=== PATIENT | female | born 1950 | race Caucasian/White ===

== ENCOUNTER → 2016-04-16 | Outpatient (CLI) | payer OTHER ==
[~2016-04-16] MED LIST: ALEV220C2 PO; ALLE180T33 PO; ASPI1TAB24 PO; ATOR1TAB21 PO; INFL10VL IV; LOSA100T36 PO; METF1000 PO; METO50TA2 PO; PREV30CA11 PO; SERT-141 PO
--- NOTE | 2016-04-18 11:04 | REP ---
Acute abdominal series three views including PA chest and supine upright abdomen: Comparisons 06/18/2012. PA chest: Lung leavitt are clear. Cardiac size is upper normal. The terrell, mediastinum, and bony thorax unremarkable. There is no free subdiaphragmatic air. Impression: No interval change. No acute cardiopulmonary findings. Abdomen, supine and upright views: The bowel gas pattern is normal. There are no calcifications except for phleboliths in the pelvis, unchanged. The skeletal structures and soft tissues otherwise are unremarkable. Impression: Normal bowel gas pattern. Signed by Anton Hassan MD 04/16/2016 04:37 P
== END ==
LOC: M LRY 15:10
PROVIDERS: ATTEND Nurse Practitioner Family
DX: R10.9 Unspecified abdominal pain (principal)

== ENCOUNTER → 2016-04-16 | Outpatient (REF) | payer OTHER | END | disposition home or self-care (01) | LOC: M SFHCLERA 15:03 | PROVIDERS: ATTEND Nurse Practitioner Family | DX: R10.9 Unspecified abdominal pain (principal) ==

== ENCOUNTER 2016-04-18 10:43 | Emergency (ER) | payer OTHER ==
--- NOTE | 2016-04-18 12:17 | EDDOCDS ---
Nurse's Notes [facility] Name: Cait Anguiano Age: 65 yrs Sex: Female : 1950 Arrival Date: 04/18/2016 Time: 10:43 Bed TR7 Private MD: Estela Villalta M. Diagnosis: Lower abdominal pain, unspecified;Constipation Presentation: 04/18 10:46 Presenting complaint: Patient states: Pt presents with abdominal pain x 4 days was seen dls at urgent care dx constipation was given miralax and stool softner no BM yet. Pt continues to have abdominal pain pt is scheduled for colonscopy prep tomorrow colonscopy scheduled for Monday. Adult Sepsis Screening: The patient does not have new or worsening altered mentation. Patient's respiratory rate is less than 22. Systolic blood pressure is greater than 100. Patient has a qSOFA score of 0- Negative Sepsis Screen. Suicide/Homicide risk assessment- the patient denies having any suicidal and/or homicidal ideations and does not present with any other emotional, behavioral or mental health complaints. Status: Patient is not a account services analyst or dependent. Transition of care: patient was not received from another setting of care. 10:46 Acuity: HUYEN Level 4 dls 10:46 Method Of Arrival: Walkin/Carried/Asstd dls Triage Assessment: 10:54 General: Appears uncomfortable, well developed, well nourished, well groomed, Behavior dls is cooperative. Pain: Pain currently is 5 out of 10 on a pain scale. HIV screening NA for this visit Offered previously. GI: Reports constipation. Historical: - Allergies: Augmentin; - Home Meds: 1. Miralax 17 gram Oral pwpk 1 packet once daily 2. Colace 100 mg oral cap 1 cap 2 times per day 3. metformin 1,000 mg Oral tr24 1 tab twice a day 4. metoprolol tartrate 50 mg Oral tab 1 tab 2 times per day 5. Sertraline 50 mg daily 6. losartan 100 mg oral tab 1 tab once daily 7. atorvastatin 20 mg oral tab 1 tab once daily 8. Prevacid 30 mg Oral cpDR 1 cap once daily 9. aspirin 81 mg Oral tab 1 tab once daily 10. Aleve 220 mg Oral tab 1 tab 11. Flexeril 10 mg Oral tab as needed 12. remicade every 6-8 weeks - PMHx: Diabetes - NIDDM: controlled; psoratic arthritis; Hypertension; Hypercholesterolemia; - PSHx: Tubal ligation; - Social history: Smoking status: Patient/guardian denies using No barriers to communication noted, The patient speaks fluent Gabonese. - : The pt / caregiver states he / she is not on anticoagulants. Home medication list is obtained from the patient. - Exposure Risk Screening:: None identified. Vital Signs: 10:44 BP 145 / 81; Pulse 71; Resp 18 S; Temp 98.1(T); Pulse Ox 99% on R/A; Weight 97.52 kg dd6 (R); Height 5 ft. 6 in. (167.64 cm) (R); 10:44 Body Mass Index 34.70 (97.52 kg, 167.64 cm) dd6 Vitals: 10:44 Log In Time: April 18, 2016 at 10:42. dd6 ED Course: 10:44 Patient visited by Elvis Camejo PCA. dd6 10:44 Estela Villalta is Private Physician. dd6 10:44 Patient moved to Waiting dd6 10:45 Patient moved to Pre RCE dd6 10:49 Triage Initiated dls 11:27 Patient moved to Triage 3 ar3 11:53 [facility] mo1 11:53 Segun Viera MD is Attending Physician. mo1 12:07 Patient visited by Marcus Parry PA. mo1 12:09 Estela Villalta is Referral Physician. mo1 12:09 Antonio Matamoros is Referral Physician. mo1 12:13 Patient moved to TR7 ar3 12:16 [facility] Payment Agreement was scanned into [employer] and attached to record. jp5 Order Results: There are currently no results for this order. Outcome: 12:09 Discharge ordered by Provider. mo1 12:16 Patient left the ED. kcs Signatures: Carolina Donato RN RN Lety Coronado RN RN dls Desormeau, Daniell, ALVINA BOARDMARKER dd6 Janneth Goodman PCA BOARDMARKER ar3 Marcus Parry PA PA mo1 Irene Galvin jp5 MTDD
--- NOTE | 2016-04-18 12:17 | EDDOCDS ---
Physician Documentation [facility] Name: Cait Anguiano Age: 65 yrs Sex: Female : 1950 Arrival Date: 04/18/2016 Time: 10:43 Bed TR7 Private MD: Estela Villalta M. Disposition: 04/18/16 12:09 Discharged to Home/Self Care. Impression: Lower abdominal pain, unspecified, Constipation. - Condition is Stable. - Discharge Instructions: Abdominal Pain, Adult, Constipation, Adult. - Medication Reconciliation, Local Pharmacy Hours form. - Follow up: Estela Villalta; When: Call to arrange an appointment; Reason: Recheck today's complaints, Continuance of care. Follow up: Antonio Matamoros; When: Call to arrange an appointment; Reason: Recheck today's complaints, Continuance of care. - Problem is new. - Symptoms are unchanged. Historical: - Allergies: Augmentin; - Home Meds: 1. Miralax 17 gram Oral pwpk 1 packet once daily 2. Colace 100 mg oral cap 1 cap 2 times per day 3. metformin 1,000 mg Oral tr24 1 tab twice a day 4. metoprolol tartrate 50 mg Oral tab 1 tab 2 times per day 5. Sertraline 50 mg daily 6. losartan 100 mg oral tab 1 tab once daily 7. atorvastatin 20 mg oral tab 1 tab once daily 8. Prevacid 30 mg Oral cpDR 1 cap once daily 9. aspirin 81 mg Oral tab 1 tab once daily 10. Aleve 220 mg Oral tab 1 tab 11. Flexeril 10 mg Oral tab as needed 12. remicade every 6-8 weeks - PMHx: Diabetes - NIDDM: controlled; psoratic arthritis; Hypertension; Hypercholesterolemia; - PSHx: Tubal ligation; - Social history: Smoking status: Patient/guardian denies using No barriers to communication noted, The patient speaks fluent Welsh. - : The pt / caregiver states he / she is not on anticoagulants. Home medication list is obtained from the patient. - Exposure Risk Screening:: None identified. Vital Signs: 04/18 10:44 BP 145 / 81; Pulse 71; Resp 18 S; Temp 98.1(T); Pulse Ox 99% on R/A; Weight 97.52 kg / dd6 214.99 lbs (R); Height 5 ft. 6 in. (167.64 cm) (R); 10:44 Body Mass Index 34.70 (97.52 kg, 167.64 cm) dd6 MDM: 12:16 [facility] Payment Agreement was scanned into [employer] and attached to record. jp5 12:16 Financial registration complete. jp5 Signatures: Carolina Donato RN RN Lety Coronado RN RN dls O'Hagan, Michael, PA PA mo1 Irene Galvin jp5 The chart was reviewed and I authenticate all verbal orders and agree with the evaluation and treatment provided.Attachments: 12:16 [facility] Payment Agreement jp5 MTDD
--- NOTE | 2016-04-20 13:17 | EDDOCDS ---
Physician Documentation [facility] Name: Cait Anguiano Age: 65 yrs Sex: Female : 1950 Arrival Date: 04/18/2016 Time: 10:43 Bed TR7 Private MD: Estela Villalta M. Disposition: 04/18/16 12:09 Discharged to Home/Self Care. Impression: Lower abdominal pain, unspecified, Constipation. - Condition is Stable. - Discharge Instructions: Abdominal Pain, Adult, Constipation, Adult. - Medication Reconciliation, Local Pharmacy Hours form. - Follow up: Estela Villalta; When: Call to arrange an appointment; Reason: Recheck today's complaints, Continuance of care. Follow up: Antonio Matamoros; When: Call to arrange an appointment; Reason: Recheck today's complaints, Continuance of care. - Problem is new. - Symptoms are unchanged. Historical: - Allergies: Augmentin; - Home Meds: 1. Miralax 17 gram Oral pwpk 1 packet once daily 2. Colace 100 mg oral cap 1 cap 2 times per day 3. metformin 1,000 mg Oral tr24 1 tab twice a day 4. metoprolol tartrate 50 mg Oral tab 1 tab 2 times per day 5. Sertraline 50 mg daily 6. losartan 100 mg oral tab 1 tab once daily 7. atorvastatin 20 mg oral tab 1 tab once daily 8. Prevacid 30 mg Oral cpDR 1 cap once daily 9. aspirin 81 mg Oral tab 1 tab once daily 10. Aleve 220 mg Oral tab 1 tab 11. Flexeril 10 mg Oral tab as needed 12. remicade every 6-8 weeks - PMHx: Diabetes - NIDDM: controlled; psoratic arthritis; Hypertension; Hypercholesterolemia; - PSHx: Tubal ligation; - Social history: Smoking status: Patient/guardian denies using No barriers to communication noted, The patient speaks fluent Ukrainian. - Family history: Not pertinent. - : The pt / caregiver states he / she is not on anticoagulants. Home medication list is obtained from the patient. - Exposure Risk Screening:: None identified. Vital Signs: 04/18 10:44 BP 145 / 81; Pulse 71; Resp 18 S; Temp 98.1(T); Pulse Ox 99% on R/A; Weight 97.52 kg / dd6 214.99 lbs (R); Height 5 ft. 6 in. (167.64 cm) (R); 10:44 Body Mass Index 34.70 (97.52 kg, 167.64 cm) dd6 MDM: 12:16 [facility] Payment Agreement was scanned into [employer] and attached to record. jp5 12:16 Financial registration complete. jp5 14:40 T-Sheet-- Draft Copy was scanned into [employer] and attached to record. gb Signatures: Carolina Donato RN RN Lety Coronado RN RN dls Ana Cortes, Reg Reg gb Marcus Parry, ANGÉLICA PA mo1 Irene Galvin jp5 The chart was reviewed and I authenticate all verbal orders and agree with the evaluation and treatment provided.Attachments: 12:16 [facility] Payment Agreement jp5 14:40 T-Sheet-- Draft Copy gb Chart Complete MTDD
--- NOTE | 2016-04-20 13:17 | EDDOCDS ---
Physician Documentation [facility] Name: Cait Anguiano Age: 65 yrs Sex: Female : 1950 Arrival Date: 04/18/2016 Time: 10:43 Bed TR7 Private MD: Estela Villalta M. Disposition: 04/18/16 12:09 Discharged to Home/Self Care. Impression: Lower abdominal pain, unspecified, Constipation. - Condition is Stable. - Discharge Instructions: Abdominal Pain, Adult, Constipation, Adult. - Medication Reconciliation, Local Pharmacy Hours form. - Follow up: Estela Villalta; When: Call to arrange an appointment; Reason: Recheck today's complaints, Continuance of care. Follow up: Antonio Matamoros; When: Call to arrange an appointment; Reason: Recheck today's complaints, Continuance of care. - Problem is new. - Symptoms are unchanged. Historical: - Allergies: Augmentin; - Home Meds: 1. Miralax 17 gram Oral pwpk 1 packet once daily 2. Colace 100 mg oral cap 1 cap 2 times per day 3. metformin 1,000 mg Oral tr24 1 tab twice a day 4. metoprolol tartrate 50 mg Oral tab 1 tab 2 times per day 5. Sertraline 50 mg daily 6. losartan 100 mg oral tab 1 tab once daily 7. atorvastatin 20 mg oral tab 1 tab once daily 8. Prevacid 30 mg Oral cpDR 1 cap once daily 9. aspirin 81 mg Oral tab 1 tab once daily 10. Aleve 220 mg Oral tab 1 tab 11. Flexeril 10 mg Oral tab as needed 12. remicade every 6-8 weeks - PMHx: Diabetes - NIDDM: controlled; psoratic arthritis; Hypertension; Hypercholesterolemia; - PSHx: Tubal ligation; - Social history: Smoking status: Patient/guardian denies using No barriers to communication noted, The patient speaks fluent Setswana. - Family history: Not pertinent. - : The pt / caregiver states he / she is not on anticoagulants. Home medication list is obtained from the patient. - Exposure Risk Screening:: None identified. Vital Signs: 04/18 10:44 BP 145 / 81; Pulse 71; Resp 18 S; Temp 98.1(T); Pulse Ox 99% on R/A; Weight 97.52 kg / dd6 214.99 lbs (R); Height 5 ft. 6 in. (167.64 cm) (R); 10:44 Body Mass Index 34.70 (97.52 kg, 167.64 cm) dd6 MDM: 12:16 [facility] Payment Agreement was scanned into [employer] and attached to record. jp5 12:16 Financial registration complete. jp5 14:40 T-Sheet-- Draft Copy was scanned into [employer] and attached to record. gb Signatures: Carolina Donato RN RN Lety Coronado RN RN dls Ana Cortes, Reg Reg gb Marcus Parry, ANGÉLICA PA mo1 Irene Galvin jp5 The chart was reviewed and I authenticate all verbal orders and agree with the evaluation and treatment provided.Attachments: 12:16 [facility] Payment Agreement jp5 14:40 T-Sheet-- Draft Copy gb Chart Complete MTDD
--- NOTE | 2016-04-20 13:17 | EDDOCDS ---
Nurse's Notes [facility] Name: Cait Anguiano Age: 65 yrs Sex: Female : 1950 Arrival Date: 04/18/2016 Time: 10:43 Bed TR7 Private MD: Estela Villalta M. Diagnosis: Lower abdominal pain, unspecified;Constipation Presentation: 04/18 10:46 Presenting complaint: Patient states: Pt presents with abdominal pain x 4 days was seen dls at urgent care dx constipation was given miralax and stool softner no BM yet. Pt continues to have abdominal pain pt is scheduled for colonscopy prep tomorrow colonscopy scheduled for Monday. Adult Sepsis Screening: The patient does not have new or worsening altered mentation. Patient's respiratory rate is less than 22. Systolic blood pressure is greater than 100. Patient has a qSOFA score of 0- Negative Sepsis Screen. Suicide/Homicide risk assessment- the patient denies having any suicidal and/or homicidal ideations and does not present with any other emotional, behavioral or mental health complaints. Status: Patient is not a sales agent protective service or dependent. Transition of care: patient was not received from another setting of care. 10:46 Acuity: HUYEN Level 4 dls 10:46 Method Of Arrival: Walkin/Carried/Asstd dls Triage Assessment: 10:54 General: Appears uncomfortable, well developed, well nourished, well groomed, Behavior dls is cooperative. Pain: Pain currently is 5 out of 10 on a pain scale. HIV screening NA for this visit Offered previously. GI: Reports constipation. Historical: - Allergies: Augmentin; - Home Meds: 1. Miralax 17 gram Oral pwpk 1 packet once daily 2. Colace 100 mg oral cap 1 cap 2 times per day 3. metformin 1,000 mg Oral tr24 1 tab twice a day 4. metoprolol tartrate 50 mg Oral tab 1 tab 2 times per day 5. Sertraline 50 mg daily 6. losartan 100 mg oral tab 1 tab once daily 7. atorvastatin 20 mg oral tab 1 tab once daily 8. Prevacid 30 mg Oral cpDR 1 cap once daily 9. aspirin 81 mg Oral tab 1 tab once daily 10. Aleve 220 mg Oral tab 1 tab 11. Flexeril 10 mg Oral tab as needed 12. remicade every 6-8 weeks - PMHx: Diabetes - NIDDM: controlled; psoratic arthritis; Hypertension; Hypercholesterolemia; - PSHx: Tubal ligation; - Social history: Smoking status: Patient/guardian denies using No barriers to communication noted, The patient speaks fluent Panamanian. - Family history: Not pertinent. - : The pt / caregiver states he / she is not on anticoagulants. Home medication list is obtained from the patient. - Exposure Risk Screening:: None identified. Screenin:15 Screening information is obtained from prior medical records. Fall risk: No risks kcs identified. Assistance ADL's: requires no assistance with activities of daily living. Abuse/DV Screen: The patient / caregiver reports he/she is: not in a situation that causes fear, pain or injury. Nutritional screening: No deficits noted. Advance Directives: Currently, there is no health care proxy. There is no living will. home support is adequate. Assessment: 12:15 General: Appears comfortable, well developed, well nourished, well groomed, Behavior is kcs cooperative, pleasant. Pain: Complains of pain in abdomen. Awake, alert, oriented. Skin warm and dry. Moves all extremities. Respirations unlabored. No apparent distress. The patient / caregiver is instructed regarding the plan of care and ED course. Physical assessment to be completed by PA/JOSS. Vital Signs: 10:44 BP 145 / 81; Pulse 71; Resp 18 S; Temp 98.1(T); Pulse Ox 99% on R/A; Weight 97.52 kg dd6 (R); Height 5 ft. 6 in. (167.64 cm) (R); 10:44 Body Mass Index 34.70 (97.52 kg, 167.64 cm) dd6 Vitals: 10:44 Log In Time: April 18, 2016 at 10:42. dd6 ED Course: 10:44 Patient visited by Elvis Camejo PCA. dd6 10:44 Estela Villalta is Private Physician. dd6 10:44 Patient moved to Waiting dd6 10:45 Patient moved to Pre RCE dd6 10:49 Triage Initiated dls 11:27 Patient moved to Triage 3 ar3 11:53 Marcus Parry PA is PHCP. mo1 11:53 Segun Viera MD is Attending Physician. mo1 12:07 Patient visited by Marcus Parry PA. mo1 12:09 Estela Villalta is Referral Physician. mo1 12:09 Antonio Matamoros is Referral Physician. mo1 12:13 Patient moved to TR7 ar3 12:15 Accompanied by Significant Other. kcs 12:15 No IV's were initiated during this patient's visit. No procedures done that require kcs assistance. 12:16 [facility] Payment Agreement was scanned into [employer] and attached to record. jp5 13:36 Patient name changed from Cait\S\\S\Anguiano\S\ to Cait\S\Geo\S\Anguiano. EDMS 14:40 T-Sheet-- Draft Copy was scanned into [employer] and attached to record. gb Order Results: There are currently no results for this order. Outcome: 12:09 Discharge ordered by Provider. mo1 12:15 The following High Risk Discharge criteria are identified: None. Discharged to home kcs ambulatory. Condition: stable. Discharge instructions given to patient, Instructed on discharge instructions, follow up and referral plans. Demonstrated understanding of instructions, Pt was receptive of discharge instructions/ teaching. No special radiology studies were completed. 12:15 Discharge Assessment: Patient awake, alert and oriented x 3. No cognitive and/or kcs functional deficits noted. Patient verbalized understanding of disposition instructions. Patient awake and alert. patient administered narcotics - no. The following High Risk Discharge criteria are identified: None. Property sent home with patient. 12:16 Patient left the ED. kcs Signatures: Dispatcher [facility] EDRI Carolina Donato RN RN kcs Scott, Debra, RN RN dls Barnhardt, Gloria, Robby Reg gb Elvis Camejo, INTERLIBRARY LOAN SPECIALIST INTERLIBRARY LOAN SPECIALIST dd6 Janneth Goodman, INTERLIBRARY LOAN SPECIALIST INTERLIBRARY LOAN SPECIALIST ar3 Marcus Parry PA PA mo1 Irene Galvin jp5 Chart Complete MTDD
== END 2016-04-18 12:16 | disposition home or self-care (01) ==
LOC: M ED 10:43
DX: K59.00 Constipation, unspecified (principal); E11.9 Type 2 diabetes mellitus without complications; I10 Essential (primary) hypertension; E78.00 Pure hypercholesterolemia, unspecified; L40.50 Arthropathic psoriasis, unspecified; Z79.899 Other long term (current) drug therapy; Z88.1 Allergy status to other antibiotic agents

== ENCOUNTER → 2016-04-20 | Outpatient (CLI) | payer OTHER, BC ==
[~2016-04-20] VITALS: Ht 167.6 cm; Wt 97.5 kg
[~2016-04-20] MED LIST changes: +NS 1,000 ML IV SCH
--- NOTE | 2016-04-20 08:42 | ROOR ---
Patient Name: Cait Anguiano Procedure Date: 04/20/2016 8:14 AM Date of : 1950 Age: 65 Room: [facility] Gender: Female Note Status: Finalized Procedure: Colonoscopy to Cecum Indications: Screening for colorectal malignant neoplasm Providers: Antonio Matamoros MD Referring MD: Estela LUCIANO MD Requesting Provider: Medicines: Monitored Anesthesia Care Complications: No immediate complications. Procedure: Pre-Anesthesia Assessment: - The heart rate, respiratory rate, oxygen saturations, blood pressure, adequacy of pulmonary ventilation, and response to care were monitored throughout the procedure. The Colonoscope was introduced through the anus and advanced to the cecum, identified by appendiceal orifice and ileocecal valve. The colonoscopy was performed without difficulty. The patient tolerated the procedure well. The quality of the bowel preparation was excellent. Findings: The perianal and digital rectal examinations were normal. Non-bleeding internal hemorrhoids were found during retroflexion. The hemorrhoids were small and Grade I (internal hemorrhoids that do not prolapse). Scattered small-mouthed diverticula were found in the recto-sigmoid colon, sigmoid colon and descending colon. The exam was otherwise without abnormality on direct and retroflexion views. Impression: - Non-bleeding internal hemorrhoids. - Diverticulosis in the recto-sigmoid colon, in the sigmoid colon and in the descending colon. - The examination was otherwise normal on direct and retroflexion views. - No specimens collected. - The exam was otherwise normal to the cecum. Recommendation: - Patient has a contact number available for emergencies. The signs and symptoms of potential delayed complications were discussed with the patient. Return to normal activities tomorrow. Written discharge instructions were provided to the patient. - High fiber diet. - Discharge patient to home. - Continue present medications. - Repeat colonoscopy in 10 years for screening purposes. - Return to referring physician. - The findings and recommendations were discussed with the patient's family. Antonio Matamoros MD Antonio Matamoros MD 04/20/2016 8:42:46 AM This report has been signed electronically. Number of Addenda: 0 Note Initiated On: 04/20/2016 8:14 AM Estimated Blood Loss: Estimated blood loss: none.
[2016-04-20 08:55] VITALS: BP 161/75
== END ==
LOC: M OPP 07:28
PROVIDERS: ATTEND Internal Medicine Gastroenterology
DX: Z12.11 Encounter for screening for malignant neoplasm of colon (principal); K64.0 First degree hemorrhoids; K57.30 Diverticulosis of large intestine without perforation or abscess without bleeding; R19.4 Change in bowel habit; K21.9 Gastro-esophageal reflux disease without esophagitis; I10 Essential (primary) hypertension; E78.00 Pure hypercholesterolemia, unspecified; E11.9 Type 2 diabetes mellitus without complications; Z79.899 Other long term (current) drug therapy

== ENCOUNTER → 2016-09-23 | Outpatient (REF) | payer OTHER ==
[~2016-09-23] MED LIST changes: +ASPI-161 PO; -ASPI1TAB24 PO; -METF1000 PO; +METF10004 PO; -METO50TA2 PO; +METO50TA7 PO; -NS 1,000 ML IV SCH; +PREV1CAP PO; -PREV30CA11 PO; -SERT-141 PO; +SERT50TA PO
== END ==
LOC: M SFHCLERA 08:09
PROVIDERS: ATTEND Family Medicine
DX: E11.9 Type 2 diabetes mellitus without complications (principal)

== ENCOUNTER → 2016-09-23 | Outpatient (CLI) | payer OTHER ==
[2016-09-23 12:02] LABS: BASO % 0.7 % (0.0-1.0); EOS # 0.3 K/mm3 (0.0-0.50); EOS % 4.2 % (0.0-3.0); LARGE UNSTAINED CELL # 0.1 K/mm3 (0.0-0.4); LARGE UNSTAINED CELL % 1.1 % (0.0-4.0); LYMPH % 42.7 % (24.0-44.0); MEAN CORPUSCULAR HEMOGLOBIN 29.9 pg (27.0-33.0); MEAN CORPUSCULAR HGB CONC 33.2 g/dl (32.0-36.5); MONO # 0.3 K/mm3 (0.0-0.8); MONO % 4.4 % (0.0-5.0); NEUTROPHILS # 3.2 K/mm3 (1.8-7.7); NEUTROPHILS % 46.9 % (36.0-66.0); PLATELET COUNT, AUTOMATED 212 k/mm3 (150-450); WHITE BLOOD COUNT 6.8 K/mm3 (4.0-10.0)
[2016-09-23 12:08] LABS: ALBUMIN 3.6 GM/DL (3.2-5.2); ALBUMIN/GLOBULIN RATIO 1.06 (1.00-1.93); ALKALINE PHOSPHATASE 101 U/L (45-117); ALT/SGPT 27 U/L (12-78); ANION GAP 8 MEQ/L (8-16); AST/SGOT 20 U/L (15-37); BILIRUBIN,TOTAL 0.4 MG/DL (0.2-1.0); BLOOD UREA NITROGEN 18 MG/DL (7-18); CALCIUM LEVEL 8.7 MG/DL (8.8-10.2); CARBON DIOXIDE LEVEL 27 MEQ/L (21-32); CHLORIDE LEVEL 107 MEQ/L (98-107); GLOMERULAR FILTRATION RATE > 60.0 (>45); GLUCOSE, FASTING 148 MG/DL (80-110); POTASSIUM SERUM 4.4 MEQ/L (3.5-5.1); SODIUM LEVEL 142 MEQ/L (136-145)
== END ==
LOC: M LRY 08:11
PROVIDERS: ATTEND Internal Medicine Rheumatology
DX: Z51.81 Encounter for therapeutic drug level monitoring (principal); Z79.899 Other long term (current) drug therapy; L40.59 Other psoriatic arthropathy

== ENCOUNTER → 2017-03-27 | Outpatient (REF) | payer OTHER ==
[2017-03-27 12:12] LABS: ANION GAP 7 MEQ/L (8-16); BLOOD UREA NITROGEN 25 MG/DL (7-18); CALCIUM LEVEL 9.5 MG/DL (8.8-10.2); CARBON DIOXIDE LEVEL 28 MEQ/L (21-32); CHLORIDE LEVEL 105 MEQ/L (98-107); CREATININE FOR GFR 0.83 MG/DL (0.55-1.02); GLOMERULAR FILTRATION RATE > 60.0 (>45); GLUCOSE, FASTING 123 MG/DL (80-110); POTASSIUM SERUM 4.9 MEQ/L (3.5-5.1); SODIUM LEVEL 140 MEQ/L (136-145)
[2017-03-27 13:05] LABS: MALB URINE SIEMENS 7.5 MG/L
[2017-03-27 14:48] LABS: ESTIMATED AVERAGE GLUCOSE 137 MG/DL (60-110); HEMOGLOBIN A1c 6.4 %
== END ==
LOC: M SFHCLERA 08:59
DX: E11.9 Type 2 diabetes mellitus without complications (principal); I10 Essential (primary) hypertension

== ENCOUNTER → 2017-07-31 | Outpatient (REF) | payer OTHER | LOC: M SFHCLERA 11:32 | DX: J02.9 Acute pharyngitis, unspecified (principal) ==

== ENCOUNTER → 2018-03-30 | Outpatient (REF) | payer MEDICARE, OTHER ==
[~2018-03-30] MED LIST changes: -LOSA100T36 PO; +LOSA100T50 PO
[2018-03-30 11:21] LABS: CHOLESTEROL RISK RATIO 3.018 (<5)
[2018-03-30 11:55] LABS: HEMOGLOBIN A1c 6.8 %
== END ==
LOC: M SFHCLERA 09:32
PROVIDERS: ATTEND Family Medicine
DX: E11.9 Type 2 diabetes mellitus without complications (principal)

== ENCOUNTER → 2019-10-02 | Outpatient (CLI) | payer MEDICARE, OTHER ==
[~2019-10-02] MED LIST changes: +SERT-141 PO; -SERT50TA PO
--- NOTE | 2019-10-02 17:23 | REP ---
REASON: Atraumatic left hip pain. There is mild asymmetric hip joint space narrowing without buttressing, fracture, or dislocation. Mild degenerative change seen involving the sacroiliac joints. IMPRESSION: Chronic changes. Electronically Signed by Tristan Bauer DO 10/02/2019 06:46 P
--- NOTE | 2019-10-02 17:42 | REP ---
REASON: Atraumatic pain. PRIORS: None. Mild asymmetric hip joint space narrowing is present without buttressing, fracture, or dislocation. IMPRESSION: Chronic changes. Electronically Signed by Tristan Bauer DO 10/02/2019 06:46 P
== END ==
LOC: M LRY 13:53
PROVIDERS: ATTEND Physician Assistant
DX: M16.12 Unilateral primary osteoarthritis, left hip (principal); R10.2 Pelvic and perineal pain; M25.552 Pain in left hip
CPT/HCPCS: 72190; 73502; G0463

== ENCOUNTER → 2019-12-05 | Outpatient (REF) | payer MEDICARE, OTHER ==
[2019-12-05 17:25] LABS: AMORPHOUS SEDIMENT SMALL (NEGATIVE); APPEARANCE, URINE TURBID (CLEAR); BACTERIA, URINE AUTO NEGATIVE (NEGATIVE); BILIRUBIN, URINE AUTO NEGATIVE (NEGATIVE); BLOOD, URINE BLOOD 1+ (NEGATIVE); COLOR, URINE YELLOW (YELLOW); GLUCOSE, URINE (UA) AUTO NEGATIVE (NEGATIVE); KETONE, URINE AUTO TRACE mg/dL (NEGATIVE); LEUKOCYTE ESTERASE, URINE AUTO 1+ (NEGATIVE); MUCUS, URINE SMALL (NEGATIVE); NITRITE, URINE AUTO NEGATIVE (NEGATIVE); PROTEIN, URINE AUTO NEGATIVE (NEGATIVE); RBC, URINE AUTO 1 /HPF (0-3); SPECIFIC GRAVITY URINE AUTO 1.027 (1.002-1.035); SQUAMOUS EPITHELIAL CELL UR AU 15 /HPF (0-6); WBC, URINE AUTO 2 /HPF (0-3)
[2019-12-05 17:46] LABS: MALB URINE SIEMENS 18.2 MG/L; MAU/CREAT RATIO 7.1 MCG/MG (0.0-30.0)
== END ==
LOC: M SFHCLERA 16:20
PROVIDERS: ATTEND Family Medicine
DX: R30.0 Dysuria (principal); Z23 Encounter for immunization
CPT/HCPCS: 81001; 82043; 87086; 90471; 90682; G0463

== ENCOUNTER → 2020-08-08 | Outpatient (CLI) | payer MEDICARE, BC ==
[~2020-08-08] MED LIST changes: +HUMI40KI2 SC; +JARD1TAB3 PO
== END ==
LOC: M LABSMTC 10:43
PROVIDERS: ATTEND Anesthesiology
DX: Z01.818 Encounter for other preprocedural examination (principal); Z11.52 Encounter for screening for COVID-19

== ENCOUNTER 2020-08-13 06:54 | Day surgery (SDC) | payer MEDICARE, BC ==
[~2020-08-13] VITALS: Ht 165.1 cm; Wt 86.2 kg
[~2020-08-13 06:54] MED LIST changes: +DUOVISC (0.50ML VISCOAT/0.55ML PROVISC) OPHTH KIT As Ordered ONE; +POVIDONE-IODINE 5% OPHTH PREP SOL 30ML As Ordered ONE
[2020-08-13] MEDS ORDERED: TROPICAMIDE 1% OPHTH SOLN 2ML OD ONE (07:00)
[2020-08-13] MEDS ORDERED: PHENYLEPHRINE 2.5% OPHTH SOL 2ML OD ONE (07:00)
[2020-08-13] MEDS ORDERED: PROPARACAINE 0.5% OPHTH SOL 15ML OD ONE (07:00)
[2020-08-13] MEDS ORDERED: OFLOXACIN 0.3 % (OCUFLOX) OPTH SOL 5ML OD ONE (07:00)
[2020-08-13] MEDS ORDERED: MIDAZOLAM INJ 2MG/2ML VIAL (J2250 PER 1MG) As Ordered ONE (07:12)
[2020-08-13] MEDS ORDERED: fentaNYL 100 MCG/2 ML INJECTION (J3010) As Ordered ONE (07:12)
[2020-08-13] MEDS ORDERED: BSS IRR 500ML/OMIDRIA 4ML IRR BAG (OR ONLY) As Ordered ONE (08:13)
[2020-08-13 09:20] VITALS: BP 111/53
[2020-08-13] MEDS ORDERED: ONDANSETRON 4MG/2ML VIAL IV PRN (09:45)
[2020-08-13] MEDS ORDERED: LR 1,000 ML IV SCH (09:45)
[2020-08-13] MEDS ORDERED: ACETAMINOPHEN TAB 650MG DOSE (2X325MG) PO PRN (09:45)
--- NOTE | 2020-08-14 08:40 | RO ---
OPERATIVE NOTE DATE OF OPERATION: 08/13/2020 PREOPERATIVE DIAGNOSIS: 1. Visually significant nuclear sclerotic cataract, right eye. POSTOPERATIVE DIAGNOSIS: 1. Visually significant nuclear sclerotic cataract, right eye. PROCEDURE: 1. Cataract extraction with use of phacoemulsification, and placement of intraocular lens, AU00T0, 17.5 D, right eye. SURGEON: Remigio Matamoros DO ANESTHESIA: Local (Omidria with MAC) COMPLICATIONS: None POSTOPERATIVE CONDITION: Stable INDICATIONS FOR SURGERY: 1. Blurred vision affecting patient's activities of daily living. DESCRIPTION OF PROCEDURE: The patient was seen in the preoperative area and properly identified. The correct operative eye was identified and marked. The patient received topical anesthetic, antibiotics, and topical dilating drops. The patient was then transferred to the operating room. The correct side was re-identified and a time-out was performed. The eye was prepped and draped in a sterile fashion. The eyelids were isolated with Tegaderm tape and the lids were held open with an adjustable speculum. A 1.0mm paracentesis incision was made. Omidria was then injected into the anterior chamber. Viscoelastic was then injected into the anterior chamber through the paracentesis. Using a 2.4mm sharp-tipped keratome, the anterior chamber was entered via a temporal clear cornea incision. A continuous curvilinear capsulorrhexis was created with Utrata forceps. Hydrodissection was performed with BSS on a blunt cannula until the nucleus was able to rotate freely. The crystalline lens was phacoemulsified and aspirated. Irrigation/aspiration was used to remove the cortical material Cohesive viscoelastic was placed into the capsular bag to deepen it. The implant was placed into the capsular bag and allowed to unfold. Placement was confirmed by visualizing the anterior capsulorrhexis. Irrigation/aspiration was used to remove the viscoelastic. The clear corneal incision was hydrated with BSS on a blunt cannula. The lens was well positioned. Intracameral antibiotic was injected into the anterior chamber. The incisions were then tested for leaks and found to be negative. The eye was then palpated for appropriate pressure and adjusted accordingly with BSS. The eyelid speculum was then carefully removed. A shield was placed over the eye. The patient tolerated the procedure well and was discharge to the recovery unit in a stable condition.
== END 2020-08-13 09:58 | disposition home or self-care (01) ==
LOC: M SDC 06:54
PROVIDERS: ATTEND Ophthalmology
DX: H25.11 Age-related nuclear cataract, right eye (principal); I10 Essential (primary) hypertension; E78.5 Hyperlipidemia, unspecified; E11.9 Type 2 diabetes mellitus without complications; Z79.84 Long term (current) use of oral hypoglycemic drugs; Z79.899 Other long term (current) drug therapy; K21.9 Gastro-esophageal reflux disease without esophagitis; Z88.0 Allergy status to penicillin; Z88.8 Allergy status to other drugs, medicaments and biological substances
CPT/HCPCS: 66984; J1097; J2250; J3010; V2632

== ENCOUNTER → 2020-08-15 | Outpatient (CLI) | payer MEDICARE, BC ==
[~2020-08-15] MED LIST changes: -DUOVISC (0.50ML VISCOAT/0.55ML PROVISC) OPHTH KIT As Ordered ONE; -POVIDONE-IODINE 5% OPHTH PREP SOL 30ML As Ordered ONE
== END ==
LOC: M LABSMTC 10:46
PROVIDERS: ATTEND Anesthesiology
DX: Z01.818 Encounter for other preprocedural examination (principal); Z11.52 Encounter for screening for COVID-19

== ENCOUNTER 2020-08-20 06:30 | Day surgery (SDC) | payer MEDICARE, BC ==
[~2020-08-20] VITALS: Ht 165.1 cm; Wt 86.1 kg
[2020-08-20] MEDS ORDERED: POVIDONE-IODINE 5% OPHTH PREP SOL 30ML As Ordered ONE (06:32)
[2020-08-20] MEDS ORDERED: CEFUROXIME 1MG/0.1ML INTRACAMERAL INJ As Ordered ONE (06:32)
[2020-08-20] MEDS ORDERED: DUOVISC (0.50ML VISCOAT/0.55ML PROVISC) OPHTH KIT As Ordered ONE (06:32)
[2020-08-20] MEDS ORDERED: PROPARACAINE 0.5% OPHTH SOL 15ML OS ONE (07:00)
[2020-08-20] MEDS ORDERED: PHENYLEPHRINE 2.5% OPHTH SOL 2ML OS ONE (07:00)
[2020-08-20] MEDS ORDERED: TROPICAMIDE 1% OPHTH SOLN 2ML OS ONE (07:00)
[2020-08-20] MEDS ORDERED: OFLOXACIN 0.3 % (OCUFLOX) OPTH SOL 5ML OS ONE (07:00)
[2020-08-20] MEDS ORDERED: MIDAZOLAM INJ 2MG/2ML VIAL (J2250 PER 1MG) As Ordered ONE (07:05)
[2020-08-20] MEDS ORDERED: fentaNYL 100 MCG/2 ML INJECTION (J3010) As Ordered ONE (07:06)
[2020-08-20] MEDS ORDERED: BSS IRR 500ML/OMIDRIA 4ML IRR BAG (OR ONLY) As Ordered ONE (07:12)
[2020-08-20 09:05] VITALS: BP 114/54
--- NOTE | 2020-08-21 08:41 | RO ---
OPERATIVE NOTE DATE OF OPERATION: 08/20/2020 PREOPERATIVE DIAGNOSIS: 1. Visually significant nuclear sclerotic cataract, left eye. POSTOPERATIVE DIAGNOSIS: 1. Visually significant nuclear sclerotic cataract, left eye. PROCEDURE: 1. Cataract extraction with use of phacoemulsification, and placement of intraocular lens, AU00T0, 17.5 D, left eye. SURGEON: Remigio Matamoros DO ANESTHESIA: Local (Omidria) with MAC COMPLICATIONS: None POSTOPERATIVE CONDITION: Stable INDICATIONS FOR SURGERY: 1. Blurred vision affecting patient's activities of daily living. DESCRIPTION OF PROCEDURE: The patient was seen in the preoperative area and properly identified. The correct operative eye was identified and marked. The patient received topical anesthetic, antibiotics, and topical dilating drops. The patient was then transferred to the operating room. The correct side was re-identified and a time-out was performed. The eye was prepped and draped in a sterile fashion. The eyelids were isolated with Tegaderm tape and the lids were held open with an adjustable speculum. A 1.0mm paracentesis incision was made. Omidria was then injected into the anterior chamber. Viscoelastic was then injected into the anterior chamber through the paracentesis. Using a 2.4mm sharp-tipped keratome, the anterior chamber was entered via a temporal clear cornea incision. A continuous curvilinear capsulorrhexis was created with Utrata forceps. Hydrodissection was performed with BSS on a blunt cannula until the nucleus was able to rotate freely. The crystalline lens was phacoemulsified and aspirated. Irrigation/aspiration was used to remove the cortical material Cohesive viscoelastic was placed into the capsular bag to deepen it. The implant was placed into the capsular bag and allowed to unfold. Placement was confirmed by visualizing the anterior capsulorrhexis. Irrigation/aspiration was used to remove the viscoelastic. The clear corneal incision was hydrated with BSS on a blunt cannula. The lens was well positioned. Intracameral antibiotic was injected into the anterior chamber. The incisions were then tested for leaks and found to be negative. The eye was then palpated for appropriate pressure and adjusted accordingly with BSS. The eyelid speculum was then carefully removed. A shield was placed over the eye. The patient tolerated the procedure well and was discharge to the recovery unit in a stable condition.
== END 2020-08-20 09:36 | disposition home or self-care (01) ==
LOC: M SDC 06:30
PROVIDERS: ATTEND Ophthalmology
DX: H25.12 Age-related nuclear cataract, left eye (principal); I10 Essential (primary) hypertension; E11.9 Type 2 diabetes mellitus without complications; E78.5 Hyperlipidemia, unspecified; K21.9 Gastro-esophageal reflux disease without esophagitis; Z79.82 Long term (current) use of aspirin; Z79.84 Long term (current) use of oral hypoglycemic drugs; Z79.899 Other long term (current) drug therapy; Z88.0 Allergy status to penicillin; Z88.1 Allergy status to other antibiotic agents
CPT/HCPCS: 66984; J1097; J2250; V2632

== ENCOUNTER → 2020-10-16 | Outpatient (CLI) | payer MEDICARE, BC ==
[2020-10-16 17:16] LABS: HEMOGLOBIN A1c 7.9 %
== END ==
LOC: M PLALAB 12:18
PROVIDERS: ATTEND Student in an Organized Health Care Education/Training Program
DX: E11.9 Type 2 diabetes mellitus without complications (principal)

== ENCOUNTER 2020-12-19 19:51 | Emergency (ER) | payer MEDICARE, BC ==
[~2020-12-19] VITALS: Ht 165.1 cm; Wt 82.9 kg
[2020-12-19 19:58] VITALS: BP 175/82
[2020-12-19] MEDS ORDERED: TOLT2TAB12 PO (20:10)
[2020-12-19] MEDS ORDERED: NS 1,000 ML IV ONE (21:00)
[2020-12-19] MEDS ORDERED: KETOROLAC 30 MG/ML 1ML VIAL IV ONE (21:00)
[2020-12-19] MEDS ORDERED: ISOVUE-370 76% 100ML VIAL As Ordered ONE (21:05)
[2020-12-19 21:50] LABS: BASO % 0.2 % (0.0-1.0); EOS % 0.1 % (0.0-3.0); HEMATOCRIT 43.8 % (36.0-47.0); HEMOGLOBIN 14.8 g/dl (12.0-15.5); LYMPH # 1.2 10^3/uL (1.5-5.0); MEAN CORPUSCULAR HGB CONC 33.8 g/dl (32.0-36.5); MEAN CORPUSCULAR VOLUME 88.7 fl (80.0-96.0); MONO # 0.7 10^3/uL (0.0-0.8); MONO % 5.2 % (2.0-8.0); NEUTROPHILS # 11.4 10^3/uL (1.5-8.5); PLATELET COUNT, AUTOMATED 242 10^3/uL (150-450); RED BLOOD COUNT 4.94 10^6/uL (4.00-5.40); WHITE BLOOD COUNT 13.5 10^3/uL (4.0-10.0)
[2020-12-19 22:20] LABS: ALBUMIN 3.6 GM/DL (3.2-5.2); BILIRUBIN,DIRECT 0.1 MG/DL (0.0-0.2); BILIRUBIN,TOTAL 0.6 MG/DL (0.2-1.0); CALCIUM LEVEL 9.3 MG/DL (8.8-10.2); CREATININE FOR GFR 1.15 MG/DL (0.55-1.30); POTASSIUM SERUM 4.2 MEQ/L (3.5-5.1); TOTAL PROTEIN 7.3 GM/DL (6.4-8.2)
--- NOTE | 2020-12-19 23:43 | REPVR ---
PROCEDURE INFORMATION: Exam: CT Abdomen And Pelvis With Contrast Exam date and time: 12/19/2020 10:31 PM Age: 70 years old Clinical indication: Abdominal pain; Generalized; Additional info: Abd pain, bloody diarrhea- eval for colitis TECHNIQUE: Imaging protocol: Computed tomography of the abdomen and pelvis with contrast. Radiation optimization: All CT scans at this facility use at least one of these dose optimization techniques: automated exposure control; mA and/or kV adjustment per patient size (includes targeted exams where dose is matched to clinical indication); or iterative reconstruction. Contrast material: ISOVUE 370; Contrast volume: 100 ml; Contrast route: INTRAVENOUS (IV); COMPARISON: CR PELVIS COMPLETE 10/02/2019 2:16 PM FINDINGS: Lungs: No suspicious mass or airspace process in the visualized lung bases. Liver: Liver appears normal with no focal abnormality. Gallbladder and bile ducts: Gallbladder is present and shows no evidence of gallstone. Pancreas: Pancreas appears normal. No focal mass or peripancreatic inflammation. Spleen: Spleen appears homogeneous without focal mass. Adrenal glands: Adrenal glands are normal in appearance. Kidneys and ureters: Kidneys appear normal, with no stone, solid mass or hydronephrosis. Stomach and bowel: No evidence of small bowel obstruction. Terminal ileum has normal appearance. Mural edema and pericolonic stranding suggests inflammatory or infectious colitis. Diverticular changes are present within the colon without focal diverticular inflammation. Appendix: Appendix is not seen. No RLQ inflammation to suggest appendicitis. Intraperitoneal space: No pneumoperitoneum. Vasculature: No aortic aneurysm. Main portal and splenic veins enhance normally. Lymph nodes: No enlarged lymph nodes. Urinary bladder: Urinary bladder appears normal. Reproductive: Female reproductive organs appear unremarkable. Bones/joints: Bony structures show no acute fracture or destructive process. Soft tissues: No concerning focal abnormality of the extra-abdominal and pelvic soft tissues. IMPRESSION: Long segment circumferential mural edema involving the descending and sigmoid colon, suggestive of inflammatory or infectious Colitis. Electronically signed by: Abdiaziz Marcus On 12/19/2020 23:43:14 PM
[2020-12-19] MEDS ORDERED: metroNIDAZOLE (FLAGYL) 500MG TABLET PO ONE (23:55)
[2020-12-19] MEDS ORDERED: CIPROFLOXACIN 500MG TABLET PO ONE (23:55)
[2020-12-20] MEDS ORDERED: CIPR-249 PO (00:05)
[2020-12-20] MEDS ORDERED: ONDA4TAB6 PO (00:05)
[2020-12-20] MEDS ORDERED: FLAG500T PO (00:05)
== END 2020-12-20 00:28 | disposition home or self-care (01) ==
LOC: M ED 19:51
DX: K52.9 Noninfective gastroenteritis and colitis, unspecified (principal); E11.9 Type 2 diabetes mellitus without complications; I10 Essential (primary) hypertension; K21.9 Gastro-esophageal reflux disease without esophagitis; L40.50 Arthropathic psoriasis, unspecified; Z79.899 Other long term (current) drug therapy; Z79.82 Long term (current) use of aspirin; Z79.84 Long term (current) use of oral hypoglycemic drugs; Z88.0 Allergy status to penicillin; Z88.8 Allergy status to other drugs, medicaments and biological substances
CPT/HCPCS: 74177; 80048; 80076; 81001; 83690; 85025; 87086; 96361; 96374; 99284; J1885; Q9967

== ENCOUNTER → 2021-01-12 | Outpatient (CLI) | payer MEDICARE, BC ==
[~2021-01-12] MED LIST changes: +CIPR-249 PO; +FLAG500T PO; +ONDA4TAB6 PO; +TOLT2TAB12 PO
[2021-01-12 19:28] LABS: HEMOGLOBIN A1c 6.5 %
== END ==
LOC: M PLALAB 14:25
PROVIDERS: ATTEND Student in an Organized Health Care Education/Training Program
DX: E11.9 Type 2 diabetes mellitus without complications (principal)

== ENCOUNTER → 2021-01-12 | Outpatient (CLI) | payer MEDICARE, BC ==
[2021-01-12 17:50] LABS: BASO # 0.1 10^3/uL (0.0-0.2); BASO % 0.7 % (0.0-1.0); EOS # 0.2 10^3/uL (0.0-0.5); EOS % 2.1 % (0.0-3.0); HEMATOCRIT 44.4 % (36.0-47.0); LYMPH # 2.1 10^3/uL (1.5-5.0); LYMPH % 29.5 % (24.0-44.0); MEAN CORPUSCULAR HEMOGLOBIN 29.2 pg (27.0-33.0); MEAN CORPUSCULAR HGB CONC 31.5 g/dl (32.0-36.5); MEAN CORPUSCULAR VOLUME 92.7 fl (80.0-96.0); MONO # 0.6 10^3/uL (0.0-0.8); NEUTROPHILS # 4.3 10^3/uL (1.5-8.5); NEUTROPHILS % 59.3 % (36.0-66.0); PLATELET COUNT, AUTOMATED 251 10^3/uL (150-450); RED BLOOD COUNT 4.79 10^6/uL (4.00-5.40); WHITE BLOOD COUNT 7.2 10^3/uL (4.0-10.0)
[2021-01-12 19:07] LABS: ALBUMIN 3.8 GM/DL (3.2-5.2); ALT/SGPT 30 U/L (12-78); BILIRUBIN,TOTAL 0.4 MG/DL (0.2-1.0); BLOOD UREA NITROGEN 22 MG/DL (7-18); C REACTIVE PROTEIN QUANTITATIV 0.69 MG/DL (0.00-0.30); CALCIUM LEVEL 9.4 MG/DL (8.8-10.2); CARBON DIOXIDE LEVEL 26 MEQ/L (21-32); CHLORIDE LEVEL 108 MEQ/L (98-107); CREATININE FOR GFR 0.91 MG/DL (0.55-1.30); GLOMERULAR FILTRATION RATE > 60.0 (>45); GLUCOSE, FASTING 129 MG/DL (70-100); POTASSIUM SERUM 4.5 MEQ/L (3.5-5.1); SODIUM LEVEL 141 MEQ/L (136-145); TOTAL PROTEIN 7.1 GM/DL (6.4-8.2)
== END ==
LOC: M PLALAB 14:27
PROVIDERS: ATTEND Physician Assistant
DX: L40.59 Other psoriatic arthropathy (principal); E11.9 Type 2 diabetes mellitus without complications

== ENCOUNTER → 2021-04-27 | Outpatient (CLI) | payer MEDICARE, BC ==
[~2021-04-27] MED LIST changes: +LOSA100T45 PO; -LOSA100T50 PO
[2021-04-27 22:47] LABS: HEMOGLOBIN A1c 6.5 %
== END ==
LOC: M WUC 15:12
PROVIDERS: ATTEND Student in an Organized Health Care Education/Training Program
DX: E11.9 Type 2 diabetes mellitus without complications (principal)

== ENCOUNTER → 2021-09-08 | Outpatient (CLI) | payer MEDICARE, BC ==
[2021-09-08 12:43] LABS: BASO % 0.5 % (0.0-1.0); EOS # 0.2 10^3/uL (0.0-0.5); EOS % 2.8 % (0.0-3.0); HEMOGLOBIN 13.7 g/dl (12.0-15.5); LYMPH # 2.9 10^3/uL (1.5-5.0); LYMPH % 35.3 % (24.0-44.0); MEAN CORPUSCULAR HEMOGLOBIN 29.5 pg (27.0-33.0); MEAN CORPUSCULAR HGB CONC 31.9 g/dl (32.0-36.5); MEAN CORPUSCULAR VOLUME 92.5 fl (80.0-96.0); MONO # 0.6 10^3/uL (0.0-0.8); MONO % 7.3 % (2.0-8.0); NEUTROPHILS # 4.4 10^3/uL (1.5-8.5); NEUTROPHILS % 53.9 % (36.0-66.0); PLATELET COUNT, AUTOMATED 231 10^3/uL (150-450); RED BLOOD COUNT 4.65 10^6/uL (4.00-5.40); WHITE BLOOD COUNT 8.2 10^3/uL (4.0-10.0)
[2021-09-08 13:01] LABS: ERYTHROCYTE SEDIMENTATION RATE 13 mm/hr (0-30)
[2021-09-08 13:17] LABS: ALBUMIN 3.4 GM/DL (3.2-5.2); ALT/SGPT 20 U/L (12-78); BILIRUBIN,TOTAL 0.3 MG/DL (0.2-1.0); BLOOD UREA NITROGEN 17 MG/DL (7-18); C REACTIVE PROTEIN QUANTITATIV 0.77 MG/DL (0.00-0.30); CALCIUM LEVEL 9.2 MG/DL (8.8-10.2); CARBON DIOXIDE LEVEL 27 MEQ/L (21-32); CHLORIDE LEVEL 107 MEQ/L (98-107); CREATININE FOR GFR 0.86 MG/DL (0.55-1.30); GLOMERULAR FILTRATION RATE > 60.0 (>45); GLUCOSE, FASTING 124 MG/DL (70-100); POTASSIUM SERUM 4.6 MEQ/L (3.5-5.1); SODIUM LEVEL 141 MEQ/L (136-145); TOTAL PROTEIN 6.9 GM/DL (6.4-8.2)
== END ==
LOC: M WUC 10:02
PROVIDERS: ATTEND Physician Assistant
DX: L40.59 Other psoriatic arthropathy (principal)

== ENCOUNTER → 2022-05-04 | Outpatient (CLI) | payer MEDICARE, BC ==
[2022-05-04 16:33] LABS: BASO # 0.1 10^3/uL (0.0-0.2); BASO % 0.6 % (0.0-1.0); EOS # 0.2 10^3/uL (0.0-0.5); EOS % 2.3 % (0.0-3.0); HEMATOCRIT 41.6 % (36.0-47.0); HEMOGLOBIN 13.5 g/dl (12.0-15.5); LYMPH # 2.8 10^3/uL (1.5-5.0); LYMPH % 33.3 % (24.0-44.0); MEAN CORPUSCULAR HEMOGLOBIN 30.7 pg (27.0-33.0); MEAN CORPUSCULAR HGB CONC 32.5 g/dl (32.0-36.5); MEAN CORPUSCULAR VOLUME 94.5 fl (80.0-96.0); MONO # 0.8 10^3/uL (0.0-0.8); MONO % 8.9 % (2.0-8.0); NEUTROPHILS # 4.6 10^3/uL (1.5-8.5); NEUTROPHILS % 54.7 % (36.0-66.0); PLATELET COUNT, AUTOMATED 234 10^3/uL (150-450); WHITE BLOOD COUNT 8.4 10^3/uL (4.0-10.0)
[2022-05-04 16:59] LABS: CREATININE, URINE 62.6 MG/DL; MALB URINE SIEMENS < 3.0 MG/DL; MAU/CREAT RATIO 4.7 MCG/MG (0.0-30.0)
[2022-05-04 19:24] LABS: HEMOGLOBIN A1c 6.2 % (4.0-6.0)
[2022-05-04 22:30] LABS: ALBUMIN 3.5 G/DL (3.2-5.2); ALKALINE PHOSPHATASE 83 U/L (46-116); ALT/SGPT 75 U/L (7.0-40); AST/SGOT 79 U/L (<34); BILIRUBIN,TOTAL 0.5 MG/DL (0.3-1.2); BLOOD UREA NITROGEN 19 MG/DL (9-23); CALCIUM LEVEL 9.2 MG/DL (8.3-10.6); CARBON DIOXIDE LEVEL 30 MMOL/L (20-31); CHLORIDE LEVEL 106 MMOL/L (98-107); CHOLESTEROL LEVEL 194 MG/DL (<200); CHOLESTEROL RISK RATIO 3.58 (<5); CREATININE FOR GFR 0.79 MG/DL (0.55-1.30); GLOMERULAR FILTRATION RATE > 60.0 (>45); GLUCOSE, FASTING 106 MG/DL (74-106); HDL CHOLESTEROL 54.1 MG/DL (>40); LDL CHOLESTEROL 102.1 MG/DL (<100); NON-HDL-C 140 MG/DL; POTASSIUM SERUM 4.8 MMOL/L (3.5-5.1); SODIUM LEVEL 142 MMOL/L (136-145); TOTAL PROTEIN 6.5 G/DL (5.7-8.2); TRIGLYCERIDES LEVEL 189 MG/DL (<150)
== END ==
LOC: M WUC 10:17
PROVIDERS: ATTEND Student in an Organized Health Care Education/Training Program
DX: E11.9 Type 2 diabetes mellitus without complications (principal); I10 Essential (primary) hypertension; Z00.00 Encounter for general adult medical examination without abnormal findings

== ENCOUNTER → 2022-06-01 | Outpatient (CLI) | payer MEDICARE, BC ==
[2022-06-01 17:28] LABS: FOLATE 17.53 NG/ML (>5.4)
== END ==
LOC: M WUC 14:38
PROVIDERS: ATTEND Student in an Organized Health Care Education/Training Program
DX: G62.9 Polyneuropathy, unspecified (principal)

== ENCOUNTER → 2023-02-12 | Outpatient (REF) | payer MEDICARE, BC ==
[~2023-02-12] MED LIST changes: -LOSA100T45 PO; +LOSA100T46 PO
== END ==
LOC: M LAB REF 20:02
PROVIDERS: ATTEND Physician Assistant Medical
DX: N39.0 Urinary tract infection, site not specified (principal)

== ENCOUNTER → 2023-04-22 | Outpatient (REF) | payer MEDICARE, BC ==
[2023-04-22 18:38] LABS: APPEARANCE, URINE CLEAR (CLEAR); BACTERIA, URINE AUTO NEGATIVE (NEGATIVE); BILIRUBIN, URINE AUTO NEGATIVE (NEGATIVE); BLOOD, URINE BLOOD NEGATIVE (NEGATIVE); COLOR, URINE YELLOW (YELLOW); GLUCOSE, URINE (UA) AUTO 3+ mg/dL (NEGATIVE); KETONE, URINE AUTO NEGATIVE (NEGATIVE); LEUKOCYTE ESTERASE, URINE AUTO TRACE (NEGATIVE); NITRITE, URINE AUTO NEGATIVE (NEGATIVE); PROTEIN, URINE AUTO NEGATIVE (NEGATIVE); RBC, URINE AUTO 1 /HPF (0-3); SPECIFIC GRAVITY URINE AUTO 1.013 (1.002-1.035); SQUAMOUS EPITHELIAL CELL UR AU 3 /HPF (0-6); UROBILINOGEN, URINE AUTO 0.2 mg/dL (0.0-2.0); WBC, URINE AUTO 1 /HPF (0-3)
== END ==
LOC: M LAB REF 18:25
PROVIDERS: ATTEND Physician Assistant Medical
DX: N39.0 Urinary tract infection, site not specified (principal)

== ENCOUNTER → 2023-04-25 | Outpatient (CLI) | payer MEDICARE, BC ==
[2023-04-25 14:53] LABS: BASO % 0.4 % (0.0-1.0); EOS # 0.1 10^3/uL (0.0-0.5); EOS % 1.1 % (0.0-3.0); HEMATOCRIT 43.7 % (36.0-47.0); LYMPH % 26.5 % (24.0-44.0); MEAN CORPUSCULAR HEMOGLOBIN 30.6 pg (27.0-33.0); MEAN CORPUSCULAR VOLUME 95.6 fl (80.0-96.0); MONO # 0.7 10^3/uL (0.0-0.8); MONO % 9.8 % (2.0-8.0); NEUTROPHILS # 4.7 10^3/uL (1.5-8.5); NEUTROPHILS % 61.7 % (36.0-66.0); PLATELET COUNT, AUTOMATED 287 10^3/uL (150-450); RED BLOOD COUNT 4.57 10^6/uL (4.00-5.40); WHITE BLOOD COUNT 7.6 10^3/uL (4.0-10.0)
[2023-04-25 14:57] LABS: ALBUMIN 3.6 G/DL (3.2-5.2); BILIRUBIN,TOTAL 0.4 MG/DL (0.3-1.2); CALCIUM LEVEL 9.2 MG/DL (8.3-10.6); CHOLESTEROL RISK RATIO 5.39 (<5); CREATININE FOR GFR 1.08 MG/DL (0.55-1.30); GLOMERULAR FILTRATION RATE 53.4 (>39); LDL CHOLESTEROL 158.8 MG/DL (<100); POTASSIUM SERUM 4.2 MMOL/L (3.5-5.1); TOTAL PROTEIN 7.1 G/DL (5.7-8.2)
[2023-04-25 14:59] LABS: THYROID STIMULATING HORMONE 2.158 uIU/ML (0.55-4.78)
[2023-04-25 15:03] LABS: FOLATE 20.82 NG/ML (>5.4)
[2023-04-25 15:27] LABS: CREATININE, URINE 103.3 MG/DL
[2023-04-25 15:28] LABS: MAU/CREAT RATIO 4.8 MCG/MG (0.0-30.0)
== END ==
LOC: M WUC 09:54
PROVIDERS: ATTEND Physician Assistant
DX: E11.8 Type 2 diabetes mellitus with unspecified complications (principal)

== ENCOUNTER → 2023-04-28 | Outpatient (REF) | payer MEDICARE, BC ==
[~2023-04-28] MED LIST changes: -ASPI-161 PO; +ASPI-615 PO
== END ==
LOC: M SFHCLERA 16:55
PROVIDERS: ATTEND Physician Assistant
DX: J02.9 Acute pharyngitis, unspecified (principal)

== ENCOUNTER → 2023-05-03 | Outpatient (REF) | payer MEDICARE, BC ==
[2023-05-03 21:06] LABS: APPEARANCE, URINE CLEAR (CLEAR); BACTERIA, URINE AUTO NEGATIVE (NEGATIVE); BILIRUBIN, URINE AUTO NEGATIVE (NEGATIVE); BLOOD, URINE BLOOD NEGATIVE (NEGATIVE); COLOR, URINE STRAW (YELLOW); GLUCOSE, URINE (UA) AUTO 3+ mg/dL (NEGATIVE); KETONE, URINE AUTO NEGATIVE (NEGATIVE); LEUKOCYTE ESTERASE, URINE AUTO NEGATIVE (NEGATIVE); NITRITE, URINE AUTO NEGATIVE (NEGATIVE); PROTEIN, URINE AUTO NEGATIVE (NEGATIVE); RBC, URINE AUTO 0 /HPF (0-3); SPECIFIC GRAVITY URINE AUTO 1.009 (1.002-1.035); SQUAMOUS EPITHELIAL CELL UR AU 2 /HPF (0-6); UROBILINOGEN, URINE AUTO 0.2 mg/dL (0.0-2.0); WBC, URINE AUTO 1 /HPF (0-3)
== END ==
LOC: M LAB REF 20:32
PROVIDERS: ATTEND Physician Assistant
DX: N39.0 Urinary tract infection, site not specified (principal)